=== PATIENT | male | born 2005 | race African-American/Black ===

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

== ENCOUNTER 2025-08-10 16:21 | Emergency (ER) | payer OTHER, SELFPAY ==
--- NOTE | 2025-08-10 16:25 | ED.URI ---
HPI - URI/Sore Throat General Chief Complaint: Upper Respiratory Infection Stated Complaint: sore throat, cough Time Seen by Provider: 08/10/25 16:25 Source: patient Mode of arrival: ambulatory Limitations: no limitations History of Present Illness HPI Narrative: Gal is a 20 year old male patient presenting to the clinic today with c/o sore throat, cough, headache, body aches, and feeling feverish x 4 days. He has been taking DayQuil NyQuil for his symptoms. Denies any chest pain or shortness of breath. Related Data Home Medications ?Medication ?Instructions ?Recorded ?Confirmed ?Last Taken ?Type dexmethylphenidate 20 mg 20 mg PO 04/27/21 Unknown History capsule,extended release [id number] (Focalin XR) guanfacine 1 mg tablet,extended 1 mg PO QPM 04/27/21 Unknown History release 24 hr sertraline 50 mg tablet 50 mg PO DAILY 04/27/21 Unknown History Allergies Allergy/AdvReac Type Severity Reaction Status Date / Time No Known Allergies Allergy Verified 04/27/21 19:12 Review of Systems Review of Systems: Pertinent positives per HPI. Patient denies any fever, chills, rash, headache, visual changes, dizziness, cough, shortness of breath, chest pain, palpitations, nausea, vomiting, diarrhea, constipation, abdominal pain, or any urinary issues. PMFSH Social History Social History Substance use type: does not use Comments At the time of my signature, I reviewed and agree with the nursing past medical, surgical, social, and family history. There is no relevant family history pertinent to the patient complaint. Exam Narrative: General: Well-developed, well nourished, in no apparent distress Head: Normocephalic, atraumatic Eyes: Pupils equally round and reactive to light bilaterally, EOM intact, sclera and conjunctive clear, no discharge, lids normal Ears: TMs intact and clear, ear canals clear, no drainage, grossly hearing normal. Nose: Nares patent, clear nasal discharge, mild inflammation, no sinus tenderness. Mouth: Oral pharynx red without lesions or masses, good dentition, MMM. Neck: Supple, trachea midline, no enlargement of anterior or posterior cervical nodes, no thyroid masses or goiter palpable. Cardio: Regular rate and rhythm, s1 and s2 normal, no murmur appreciated. Resp: Clear to auscultation bilaterally, no rhonchi, rales, wheezing or rubs Course Course Level of Care: Express Care Visit Vital Signs Vital signs: Vital Signs Temperature 37.7 C H 08/10/25 16:43 Pulse Rate 112 H 08/10/25 16:43 Respiratory Rate 16 08/10/25 16:43 Blood Pressure 105/64 08/10/25 16:43 Pulse Oximetry 97 08/10/25 16:43 Temperature 37.7 C H 08/10/25 16:43 Pulse Rate 112 H 08/10/25 16:43 Respiratory Rate 16 08/10/25 16:43 Blood Pressure 105/64 08/10/25 16:43 Pulse Oximetry 97 08/10/25 16:43 MDM MDM Narrative Medical decision making narrative: At the time of visit patient is resting comfortably on the exam table. Patient appears to be nontoxic. C/o sore throat, cough, headache, body aches, and feeling feverish x 4 days. He has been taking DayQuil NyQuil for his symptoms. Denies any chest pain or shortness of breath. On exam patient has bilateral TMs intact and clear, clear nasal drainage, no anterior turbinate inflammation, oral pharynx red with out tonsillar enlargement, no cervical lymphadenopathy, tachycardia- heart rate regular rate and rhythm, lung sounds are clear. COVID, flu, and strep test were ordered. Labs: COVID, influenza, and strep test were performed and negative in the clinic today. We will send strep for culture Plan: I suspect patient has URI, pharyngitis, viral syndrome. Work note was given. Supportive measures were discussed with the patient and they voiced understanding discharge instructions and agrees to treatment plan. Return precautions reviewed Differential Diagnosis Differential Diagnosis: Differential diagnostic considerations for upper respiratory infection include upper respiratory infection, croup, otitis media, sinusitis, viral infection, bronchitis, influenza, pharyngitis, strep, uvulitis. Discharge Plan Discharge Clinical Impression: Viral infection Upper respiratory infection Qualifiers: URI type: unspecified URI Qualified Code(s): J06.9 - Acute upper respiratory infection, unspecified Pharyngitis Qualifiers: Pharyngitis/tonsillitis etiology: unspecified etiology Qualified Code(s): J02.9 - Acute pharyngitis, unspecified Patient Disposition: Home Condition: Stable Instructions: Antibiotic Form, Pharyngitis (ED), Viral Syndrome (ED), Cold Symptoms (ED) Additional Instructions: COVID, influenza, and strep test were all negative in the clinic today. Increase fluids and stay well hydrated May take Tylenol or motrin as directed on bottle for pain/fever May use Flonase 1 spray in each nare daily May take OTC antihistamines such as Zyrtec or Claritin daily as directed on bottle May apply Vicks vapor rub to chest to open sinuses Sinus rinses for congestion Cepacol spray, cough drops, throat lozenges, warm tea with honey/lemon, gargle salt water to soothe throat BRAT diet for diarrhea Clear liquids x 24 hours then advance as tolerated for nausea/vomiting Go to the ED if you develop a worsening in your condition- high fever not controlled by Tylenol or Motrin, dehydration, weakness, lethargy, shortness of breath, or chest pain. Follow up with your PCP in 3-5 days if symptoms persist. Patient Language: Setswana Prescriptions: No Action sertraline 50 mg Tablet 50 mg PO DAILY dexmethylphenidate [Focalin XR] 20 mg Capsule,Er Biphasic 50-50 20 mg PO guanfacine 1 mg Tablet Extended Release 24 Hr 1 mg PO QPM Follow-up/Referrals: Mariya Gilbert MD [Primary Care Provider, Pediatrics] Stand Alone Forms: Work/School Release IP Time of Disposition: 16:56 Quality NIHSS Nursing Documentation ED NIHSS nursing documentation: reviewed/agree
[2025-08-10 16:43] VITALS: BP 105/64; PULSE 112; RESP 16; TEMP 37.7; O2SAT 97
[2025-08-10 18:33] LABS: EDCOVIDSCREEN Negative (Negative); EDINFLUASCREEN Negative (Negative); EDINFLUBSCREEN Negative (Negative); EDSTREPNEGPOS1 Negative (Negative)
== END 2025-08-10 17:03 | disposition home or self-care (01) ==
PROVIDERS: Emergency Provider Nurse Practitioner Family; PCP Pediatrics
DX: J02.9 Acute pharyngitis, unspecified (principal); J06.9 Acute upper respiratory infection, unspecified; B34.9 Viral infection, unspecified
CPT/HCPCS: 87081; 87426; 87804; 87880; 99213; G0463